=== PATIENT | female | born 1985 | race Hispanic/Latino ===

== ENCOUNTER 2018-03-04 12:01 | Emergency (ER) | payer BC ==
[2016-04-27 10:14] VITALS: BMI 25.8
--- NOTE | 2018-03-04 19:50 | OBHP ---
Datetime: 03/04/2018 12:39 IP Adm Impression: , intrauterine IP Chief Complaint Other: abdominal pain Admit Comment, IP Provider: HPI: 32 y/o with EGA 32.6 weeks, JATINDER 04/23/18 who presents today sent by her OB doctor for c/o abdominal pain since yesterday at 6PM, patient describes the pain as a constant tightness feeling on her abdomen, is 9/10, no radiation, is worse with standing and gets be tter when lying down, patient states that she has no pain at this time, she denies Vaginal bleeding, CONTX, LOF, trauma or recent sexual activity. Patient reports positive FM. ROS: Unremarkable, except as per HPI. OBGYN: x1 previous term , Patient denies problems in previous or current . Care Provider: Dr Hughes PMH: None FMH: None Social: Denies Tobacco/ETOH/Rec drug use. SURGH: None Allergies: Sulfas MEDS: PNV, Iron, Tums as needed for heartburn. LABS: Unable to obtain records at this time. A/P 32 y/o with EGA 32.6 weeks, JATINDER 04/23/18 who presents with c/o abdominal pain since yester day, patient reports no abdominal pain at this time of evaluation. -Rule out labor -Will Monitor Maternal CONTX and VS -Will monitor FHR tracing Rachel Jackson MD PGY1 Addendum: I saw and examined patient. No evidence of labor at this time. Patient comfortable with no complaints at this time. I discussed plan with patient all patient questions answered. Patient will follow-up in office in a few days as already scheduled. Cadence FHR - Baseline A Provider: 140 Contraction Comments Provider: Occasional Comments, ACOG Physical Exam: GEN: NAD HEENT: Normocephalic, EOMI RESP: CTA b/l CV: RRR, No murmurs noted ABD: Gravid, Soft, Non-tender LE: No edema. EGA AdmitDate IP: 32.6 Vital Signs Provider: Reviewed IP Chief Complaint: Other NICHD Variability Prov Fetus A: Moderate 6-25bpm NICHD Accel Fetus A IP Provider: 15X15 FHR Category Provider Fetus A: Category I Dilatation, Provider: 0 Effacement, Provider: 0 Station, Provider: -4
[2018-03-05 00:16] VITALS: BP 114/60; PULSE 68; RESP 18; TEMP 98.5; O2SAT 100
== END 2018-03-04 14:15 | disposition home or self-care (01) ==
LOC: H.EROB2 12:01
DX: O26.93 Pregnancy related conditions, unspecified, third trimester (principal); R10.2 Pelvic and perineal pain; Z3A.32 32 weeks gestation of pregnancy

== ENCOUNTER 2018-04-11 08:20 | Emergency (ER) | payer BC ==
[2016-04-27 10:14] VITALS: BMI 25.8
--- NOTE | 2018-04-11 18:22 | OBHP ---
Datetime: 04/11/2018 09:15 IP Adm Impression: Term, intrauterine IP Admit Plan: Observation/Evaluation; Discharge home Admit Comment, IP Provider: 32 yo F EGA 38.2 based on first US (unknown date) presents to [facility] with dark red vaginal bleed 1.5 hours prior to arrival. Pt reports the amount as less than a c up. She reports recent vaginal intercouse 2 days prior. PNC: Dr. Hughes Last visit thursday; last US thursday vertex; next visit: thursday Reports good fm. Denies LOF, dizzniness, mayen, cp/sob/n/v, dysuria Pt reports hx of low lying placenta, however, has since resolved. PMHx: none Famhx: none Soc: denies smoking, alcohol, illicit drugs surg: none Allergies: sulfa Meds: PNV, colace, feosol AAOx3 C: s1S2 no murmurs Lungs: clear to auscultation bilaterally. no wheezing Abdo: gravid, soft, nontender CVA: negative Calves non tender 32 yo F IUP 38.2 presents with dark red vaginal discharge 2 days post intercourse -Monitor for VB, and NST 11:00 -NST reactive and reassuring -speculum exam revealed maroon blood discharge with clots approx 10 cc. Cervix closed. no lesions observed in vaginal canal or on cervix -discussed differentials for 3rd trimester bleed with patient. discussed options for OB ultrasound for further assessment, however, low sensitivity for diagnositic purposes. -D/C home with ER precautions reviewed with patient and both patient and partner acknowleged under standing Case dw Dr. Gould and Dr. Alistair Aviles MD PGY2. Attending Note: Patient was seen and discussed with patient and i agree with the above assessment. Pelvic Type - PN: Adequate Extremities - PN: Normal Abdomen - PN: Normal Back - PN: Normal Breast - PN: Not Done Lungs - PN: Normal Heart - PN: Normal Thyroid - PN: Not Done Neurologic - PN: Normal HEENT - PN: Normal General - PN: Normal FHR - Baseline A Provider: 130 EGA AdmitDate IP: 38.2 Vital Signs Provider: Reviewed; Within Normal Limits IP Chief Complaint: Vaginal bleeding; Maternal discomfort NICHD Variability Prov Fetus A: Moderate 6-25bpm NICHD Accel Fetus A IP Provider: 15X15 FHR Category Provider Fetus A: Category I NICHD Decel Fetus A IP Provider: None Genitourinary Exam: Normal DTRs - PN: Not Done
== END 2018-04-11 11:30 | disposition home or self-care (01) ==
LOC: H.EROB2 08:20
DX: O46.93 Antepartum hemorrhage, unspecified, third trimester (principal); Z3A.38 38 weeks gestation of pregnancy

== ENCOUNTER 2018-04-11 22:41 | Emergency (ER) | payer BC ==
[2016-04-27 10:14] VITALS: BMI 25.8
[2018-04-12 05:37] VITALS: BP 117/64; PULSE 69; RESP 20; TEMP 98.6; O2SAT 100
== END 2018-04-12 01:15 | disposition home or self-care (01) ==
LOC: H.EROB2 22:41
DX: O26.93 Pregnancy related conditions, unspecified, third trimester (principal); O46.93 Antepartum hemorrhage, unspecified, third trimester; Z3A.38 38 weeks gestation of pregnancy; R10.2 Pelvic and perineal pain

== ENCOUNTER 2018-04-13 02:24 | Inpatient (IN) | payer BC, OTHER ==
[2018-04-13] MEDS ORDERED: Lactated Ringer's 1,000 ML IV ONE (02:57)
[2018-04-13] MEDS ORDERED: Lactated Ringer's 1,000 ML IV SCH ×2 (03:00)
[2018-04-13 04:02] LABS: HEMOGLOBIN 12.2 g/dL (12.0-16.0); MEAN CELL VOLUME 78.9 fl (81.0-99.0); MEAN CORPUSCULAR HEMOGLOBIN 26.5 pg (27.0-31.0); MEAN CORPUSCULAR HGB CONC 33.6 g/dL (33.0-37.0); RBC 4.6 Mil/uL (3.80-5.20); RED CELL DISTRIBUTION WIDTH 14.5 % (11.5-14.5); WHITE BLOOD COUNT 9.4 K/uL (4.8-10.8)
[2018-04-13] MEDS ORDERED: Fentanyl/Bupivacaine HCl 250 ML EPI ONE (04:16)
[2018-04-13] MEDS ORDERED: Oxytocin 30 UNIT 30 UNITS/500 ML BAG IV ONE ×2 (08:38→10:47)
--- NOTE | 2018-04-13 08:54 | OBPN ---
Datetime: 04/13/2018 08:25 IP Progress Impression: Reassuring heart rate IP Informed Consent Obtain: Vaginal Delivery; Risks, Benefits and Alternatives Discussed IP Procedures: Artificial ROM IP Progress Plan: Augmentation; Anticipate Vaginal Delivery Pool Provider: Positive Membranes, Provider: Ruptured Amniotic Fluid Color, Provider: Clear Contraction Comments Provider: occ ireg FHR - Baseline A Provider: 120 Presentation-Admit: Vertex IP Progress Note Comment: OB Hospitalist on-call sign out rec'd...she rec'd epidural at 3cm...checke d at 6am and found to be 6cm SVE 5cm A: Latent phase of labor/iregular CTX PLAN: discussion with patient...AROM and start Pitocin augmentation...her questions answered FHR Category Provider Fetus A: Category I NICHD Variability Prov Fetus A: Moderate 6-25bpm Dilatation, Provider: 5 Effacement, Provider: 80 Station, Provider: -2 NICHD Decel Fetus A IP Provider: None Datetime: 04/13/2018 03:51 Vital Signs Provider: Within Normal Limits NICHD Accel Fetus A IP Provider: [id number] Datetime: 04/11/2018 23:39 IP Fetus A Comments: Reactive NST Gestation - Est Wks by US: 38.2
[2018-04-13] MEDS ORDERED: Benzocaine/Menthol SPRAY TOP PRN (10:47)
[2018-04-13] MEDS ORDERED: OXYTOCIN/0.9 % NS 20 UNIT/1,000 ML BAG IV ONE (10:47)
[2018-04-14 06:49] LABS: HEMOGLOBIN 9.9 g/dL (12.0-16.0); MEAN CELL VOLUME 79.8 fl (81.0-99.0); MEAN CORPUSCULAR HEMOGLOBIN 26.6 pg (27.0-31.0); MEAN CORPUSCULAR HGB CONC 33.4 g/dL (33.0-37.0); RBC 3.7 Mil/uL (3.80-5.20); RED CELL DISTRIBUTION WIDTH 14.7 % (11.5-14.5); WHITE BLOOD COUNT 7.7 K/uL (4.8-10.8)
--- NOTE | 2018-04-14 08:16 | OBDS ---
DELIVERY PERSONNEL Nurse Legal Administrative Assistant Certified: rachel Delivery Doctor: DR Ivy Marshall Nurse: rachel Promotions Specialist: NICOLA Reyes/NICOLA Powell Anesthesiologist: DR Gilliam Chemical Strength Tester: rachel Resident: rachel MATERNAL INFORMATION Delivery Anesthesia: Local Medications in Delivery: pitocin Estimated Blood Loss (ml): 350cc Placenta Cultured: No RN Comments: uneventful to alive baby girl; 9/9;placentadelivered completely Provider Comments: 32 yo G2 now P2 who presented in spontaneous labor. Progressed to normal spontane ous vaginal delivery of live female infact, position OA over intact perineum with epidural anesthesia . No meconium. Infant was placed on maternal chest and delayed cord clamping was performed. Apgars 9 _ 9 and no excessive resuscitation was required. Spontaneous delivery of placenta with 3-vessel cord. See laceration repair note. Blood loss was appropriate. Mom and in stable condition, will be transferred to post . OB Hospitalis on-call With OB fellow, I attended . Unncomplicated. MAHNDO LABOR SUMMARY EDC: 04/23/2018 00:00 No. Babies in Womb: 1 Attempted: No Labor Anesthesia: Epidural LABOR INFORMATION Onset of Labor: 04/13/2018 03:00 Complete Dilatation: 04/13/2018 10:05 Oxytocin: Augmentation Group B Beta Strep: Negative Antibiotics # of Doses: 0 Antibiotics Time of Last Dose: 0 Steroids Given: None Reason Steroids Not Administered: Not Applicable MEMBRANES Membranes Rupture Method: Artificial Rupture of Membranes: 04/13/2018 08:25 Length of Rupture (hrs): 1.87 Amniotic Fluid Color: Clear Amniotic Fluid Amount: Scant Amniotic Fluid Odor: Normal STAGES OF LABOR Stage 1 hrs: 7 Stage 1 min: 5 Stage 2 hrs: 0 Stage 2 min: 12 Stage 3 hrs: 0 Stage 3 min: 8 Total Time in Labor hrs: 7 Total Time in Labor min: 25 VAGINAL DELIVERY Episiotomy: None Laceration Extension: First Degree Laceration Type: Perineal Other Laceration: na Laceration Repair: Yes Laceration Repair Note: A 2-0 Vicryl was used to repair the laceration in the usual fashion. Hemosta sis was adequate after repair. Initial Vag Sponge Count: 6 Final Vag Sponge Count: 6 Initial Vag Sharps Count: 1 Final Vag Sharps Count: 1 Sponge Count Correct: Yes Sharps Count Correct: Yes Count Comment: count correct BABY A INFORMATION Delivery Date/Time: 04/13/2018 10:17 Method of Delivery: Vaginal Born in Route : No : N/A Forceps: N/A Vacuum Extraction: N/A Shoulder Dystocia : No SHOULDER DYSTOCIA BABY A Delivery Date/Time: 04/13/2018 10:17 PRESENTATION/POSITION BABY A Presentation: Cephalic Cephalic Presentation: Vertex Vertex Position: Left Occipital Anterior Breech Presentation: N/A PLACENTA INFORMATION BABY A Placenta Delivery Time : 04/13/2018 10:25 Placenta Method of Delivery: Spontaneous Placenta Status: Delivered SCORES BABY A Heart Rate 1 min: >100 bpm Resp Effort 1 min: Good Cry Reflex Irritability 1 min: Cough or Sneeze or Pulls Away Muscle Tone 1 min: Active Motion Color 1 min: Body [place], Extremities Blue SCORE 1 MIN: 9 Heart Rate 5 min: >100 bpm Resp Effort 5 min: Good Cry Reflex Irritability 5 min: Cough or Sneeze or Pulls Away Muscle Tone 5 min: Active Motion Color 5 min: Body [place], Extremities Blue SCORE 5 MIN: 9 INFANT INFORMATION BABY A Gestational Age at Delivery: 38.4 Gestational Status: Term Infant Outcome : Liveborn Condition : Stable Sex: Female WEIGHT/LENGTH BABY A Birthweight (gms): 3150 Infant Weight (lb): 6 Infant Weight (oz): 15 CORD INFORMATION BABY A No. Cord Vessels: 3 Nuchal Cord : N/A Nuchal Cord Other: na True Knot: na Infant Cord pH Baby Arterial: na Infant Cord pH Baby Venous: na Cord Blood Taken: Yes Banking/Donate Info: na Infant Suction: None
--- NOTE | 2018-04-14 08:17 | OBDS ---
DELIVERY PERSONNEL Nurse [place] Operator Certified: rachel Delivery Doctor: DR Ivy Marshall Nurse: rachel Studio Grip: NICOLA Reyes/NICOLA Powell Anesthesiologist: DR Gilliam Mobile Designer: rachel Resident: rachel MATERNAL INFORMATION Delivery Anesthesia: Local Medications in Delivery: pitocin Estimated Blood Loss (ml): 350cc Placenta Cultured: No RN Comments: uneventful to alive baby girl; 9/9;placentadelivered completely Provider Comments: 32 yo G2 now P2 who presented in spontaneous labor. Progressed to normal spontane ous vaginal delivery of live female infact, position OA over intact perineum with epidural anesthesia . No meconium. Infant was placed on maternal chest and delayed cord clamping was performed. Apgars 9 _ 9 and no excessive resuscitation was required. Spontaneous delivery of placenta with 3-vessel cord. See laceration repair note. Blood loss was appropriate. Mom and in stable condition, will be transferred to post . OB Hospitalis on-call With OB fellow, I attended . Unncomplicated. MAHNDO LABOR SUMMARY EDC: 04/23/2018 00:00 EDC: 04/23/2018 00:00 EDC: 04/23/2018 00:00 No. Babies in Womb: 1 Attempted: No Labor Anesthesia: Epidural LABOR INFORMATION Onset of Labor: 04/13/2018 03:00 Complete Dilatation: 04/13/2018 10:05 Oxytocin: Augmentation Group B Beta Strep: Negative Group B Beta Strep: Negative Antibiotics # of Doses: 0 Antibiotics Time of Last Dose: 0 Steroids Given: None Reason Steroids Not Administered: Not Applicable MEMBRANES Membranes Rupture Method: Artificial Rupture of Membranes: 04/13/2018 08:25 Length of Rupture (hrs): 1.87 Amniotic Fluid Color: Clear Amniotic Fluid Amount: Scant Amniotic Fluid Odor: Normal STAGES OF LABOR Stage 1 hrs: 7 Stage 1 min: 5 Stage 2 hrs: 0 Stage 2 min: 12 Stage 3 hrs: 0 Stage 3 min: 8 Total Time in Labor hrs: 7 Total Time in Labor min: 25 VAGINAL DELIVERY Episiotomy: None Laceration Extension: First Degree Laceration Type: Perineal Other Laceration: na Laceration Repair: Yes Laceration Repair Note: A 2-0 Vicryl was used to repair the laceration in the usual fashion. Hemosta sis was adequate after repair. Initial Vag Sponge Count: 6 Final Vag Sponge Count: 6 Initial Vag Sharps Count: 1 Final Vag Sharps Count: 1 Sponge Count Correct: Yes Sharps Count Correct: Yes Count Comment: count correct BABY A INFORMATION Infant Delivery Date/Time: 04/13/2018 10:17 Method of Delivery: Vaginal Born in Route : No : N/A Forceps: N/A Vacuum Extraction: N/A Shoulder Dystocia : No SHOULDER DYSTOCIA BABY A Infant Delivery Date/Time: 04/13/2018 10:17 PRESENTATION/POSITION BABY A Presentation: Cephalic Cephalic Presentation: Vertex Vertex Position: Left Occipital Anterior Breech Presentation: N/A PLACENTA INFORMATION BABY A Placenta Delivery Time : 04/13/2018 10:25 Placenta Method of Delivery: Spontaneous Placenta Status: Delivered SCORES BABY A Heart Rate 1 min: >100 bpm Resp Effort 1 min: Good Cry Reflex Irritability 1 min: Cough or Sneeze or Pulls Away Muscle Tone 1 min: Active Motion Color 1 min: Body [place], Extremities Blue SCORE 1 MIN: 9 Heart Rate 5 min: >100 bpm Resp Effort 5 min: Good Cry Reflex Irritability 5 min: Cough or Sneeze or Pulls Away Muscle Tone 5 min: Active Motion Color 5 min: Body [place], Extremities Blue SCORE 5 MIN: 9 INFORMATION BABY A Gestational Age at Delivery: 38.4 Gestational Status: Term Infant Outcome : Liveborn Infant Condition : Stable Infant Sex: Female WEIGHT/LENGTH BABY A Infant Birthweight (gms): 3150 Weight (lb): 6 Infant Weight (oz): 15 CORD INFORMATION BABY A No. Cord Vessels: 3 Nuchal Cord : N/A Nuchal Cord Other: na True Knot: na Cord pH Baby Arterial: na Infant Cord pH Baby Venous: na Cord Blood Taken: Yes Banking/Donate Info: na Infant Suction: None
--- NOTE | 2018-04-14 11:57 | OBPPN ---
Datetime: 04/14/2018 11:53 PP Pain Prov: Within normal limits PP Nausea Prov: Denies PP Flatus Prov: Yes PP Breasts Prov: Not Done PP Heart Prov: Normal PP Lungs Prov: Normal PP Abdomen/Uterus Prov: Normal PP Lochia Prov: Not Done PP Vulva/Perineum Prov: Not Done PP CVA Tenderness Prov: Normal PP Extremities Prov: Normal PP Progress Note Prov: Patient doing well ambulating reports minimal lochia tolerating diet and void ing without difficulty Vital signs stable afebrile Uterus firm below the umbilicus Extremities no Homans day 1 Ambulation, regular diet, analgesias needed Vital Signs Provider PP: Reviewed
[2018-04-15] MEDS ORDERED: Lansinoh for Breast Feeding Mothers TP ONE (03:46)
[2018-04-15 20:13] VITALS: BP 106/60; PULSE 68; RESP 20; TEMP 98.8; O2SAT 100
--- NOTE | 2018-04-16 08:55 | OBPPN ---
Datetime: 04/15/2018 08:46 PP Pain Prov: Within normal limits PP Nausea Prov: Denies PP Flatus Prov: Yes PP BM Prov: Yes PP Breasts Prov: Normal PP Heart Prov: Normal PP Lungs Prov: Normal PP Abdomen/Uterus Prov: Normal PP Lochia Prov: Normal PP Vulva/Perineum Prov: Normal PP CVA Tenderness Prov: Normal PP Extremities Prov: Normal PP C/S Incision Prov: Not Applicable PP Progress Prov: Normal PP Comments Phys Exam Prov: Abdomen soft, nontender, nondistended Uterus firm, below umbilicus No deep Tenderness bilaterally PP Impression Prov: Normal progression PP Plan Prov: Continue present management PP Progress Note Prov: Postoperative day #2 status post , patient recovering well Patient discharged home instructions and precautions IP PP Procedures: None Vital Signs Provider PP: Reviewed; Within Normal Limits
--- NOTE | 2018-04-16 08:55 | OBDCSUM ---
Datetime: 04/15/2018 11:06 Discharge Instructions, Provider: Routine instructions given Discharge Diagnosis, Provider: Term Delivered Contraception discussed, Prov: Yes Contraception after Delivery: Undecided
== END 2018-04-15 11:45 | disposition home or self-care (01) | DRG 807 ==
LOC: H.EROB2 02:24 → H.L&D 02:57 → H.OB/GYN 15:00
PROVIDERS: ADMIT Obstetrics & Gynecology; ATTEND Obstetrics & Gynecology
PROC: 10E0XZZ Delivery of Products of Conception, External Approach (ICD-10-PCS; principal; 2018-04-13)
PROC: 0HQ9XZZ Repair Perineum Skin, External Approach (ICD-10-PCS; 2018-04-13)
PROC: 10907ZC Drainage of Amniotic Fluid, Therapeutic from Products of Conception, Via Natural or Artificial Opening (ICD-10-PCS; 2018-04-13)
PROC: 4A1HXCZ Monitoring of Products of Conception, Cardiac Rate, External Approach (ICD-10-PCS; 2018-04-13)
DX: O70.0 First degree perineal laceration during delivery (principal); Z37.0 Single live birth; Z3A.38 38 weeks gestation of pregnancy; Z88.2 Allergy status to sulfonamides